=== PATIENT | female | born 1970 | race Caucasian/White ===

== ENCOUNTER 2022-07-06 18:57 | Emergency (ER) | payer BC, OTHER ==
[~2022-07-06] VITALS: Ht 152.4 cm; Wt 74.8 kg
[2022-07-06] MEDS ORDERED: CLOP75TA15 PO (19:16)
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
--- NOTE | 2022-07-06 19:51 | NUR ---
Back from CT.
[2022-07-06] MEDS ORDERED: ONDANSETRON ODT 4 MG TAB.RAPDIS ONE (19:52)
[2022-07-06] MEDS ORDERED: ONDANSETRON ODT 4 MG TAB.RAPDIS SL ONE (20:00)
--- NOTE | 2022-07-06 20:43 | NUR ---
Patient discharged to home in stable condition. Written and verbal after care instructions given. Patient verbalizes understanding of instructions. Stressed follow up or return to ER for worsening s/s. Patient ambulated out of the ER with steady gait. All belongings with patient.
[2022-07-06 20:44] VITALS: BP 127/77
== END 2022-07-06 20:44 | disposition home or self-care (01) ==
LOC: ER 19:24
DX: S16.1XXA Strain of muscle, fascia and tendon at neck level, initial encounter (principal); S20.211A Contusion of right front wall of thorax, initial encounter; S89.91XA Unspecified injury of right lower leg, initial encounter; R51.9 Headache, unspecified; I25.2 Old myocardial infarction; Z79.01 Long term (current) use of anticoagulants; V43.52XA Car driver injured in collision with other type car in traffic accident, initial encounter; Y93.89 Activity, other specified; Y92.410 Unspecified street and highway as the place of occurrence of the external cause; Y99.8 Other external cause status
CPT/HCPCS: 70450; 71101; 72125; 73590; A4663; Q0162